=== PATIENT | male | born 1965 | race African-American/Black ===

== ENCOUNTER 2016-10-31 18:44 | Inpatient (IN) | payer OTHER ==
[~2016-10-31] VITALS: Ht 175.3 cm; Wt 107.8 kg
[2016-10-31 20:26] LABS: BASOPHILS 0.1 % (0.0-2.0); EOSINOPHILS 5.6 % (0-7); HEMATOCRIT 45.9 % (42.0-54.0); HEMOGLOBIN 15.9 g/dL (13.5-17.5); IMMATURE GRANULOCYTES 0.2 % (0-5); LYMPHOCYTES 20.8 % (15-50); MCH 31.8 pg (26.0-34.0); MCHC 34.6 g/dL (31.0-37.0); MCV 91.8 fL (80.0-100.0); MEAN PLATELET VOLUME 11.9 fL (7.4-10.4); NEUTROPHILS 63.3 % (40-80); PLATELET COUNT 163 10x3/uL (130-400); RDW 14.8 % (11.5-14.5); WBC 9.1 10x3/uL (4.8-10.8)
[2016-10-31 20:42] LABS: ALBUMIN 3.3 g/dL (3.4-5.0); ANION GAP 14.1 mmol/L (8-16); BILIRUBIN - TOTAL 0.4 mg/dL (0.2-1.3); C-REACTIVE PROTEIN 2.8 mg/dL (0.0-0.9); CALCIUM 8.5 mg/dL (8.5-10.1); CARBON DIOXIDE 23.5 mmol/L (21.0-32.0); CREATININE - SERUM 1.7 mg/dL (0.6-1.3); POTASSIUM - SERUM 3.6 mmol/L (3.5-5.1); PROTEIN - SERUM 6.9 g/dL (6.4-8.2)
[2016-10-31 21:56] LABS: ERYTHROCYTE SEDIMENTATION RATE 13 mm/hr (0-15)
--- NOTE | 2016-10-31 23:20 | NUR ---
RECIEVED TO ROOM 2104 FOR E.R. A&O, RESPERATIONS EVEN, VITALS STABLE. RASH NOTED TO VARIOUS PARTS OF BODY INCLUDING HANDS, FACE, ABD AND LEGS. PT DENIES PAIN OR NEEDS, BED LOW, CL IN REACH.
[2016-11-01] VITALS: BP 121/69
[2016-11-01 04:00] VITALS: BP 122/76
--- NOTE | 2016-11-01 04:19 | NUR ---
LYING IN BED WITH EYES CLOSED, CALL LIGHT IN REACH. WILL CONTINUE WITH PLAN OF CARE.
--- NOTE | 2016-11-01 07:23 | NUR ---
0720-AM ROUNDING DONE. PATIENT LAYING ON LEFT SIDE WITH EYES CLOSED. RESP ARE EVEN AND NON LABORED. ON ROOM AIR. ON HEART MONITOR SHOWING SR, HR 77. GIRLFRIEND IN CHAIR AT BEDSIDE. WILL CONTINUE OT MONITOR.
[2016-11-01 08:10] VITALS: BP 132/75
[2016-11-01 11:50] VITALS: BP 137/67
[2016-11-01] MEDS ORDERED: NORVASC5 MG PO (12:33)
[2016-11-01] MEDS ORDERED: CATAPRES0.1 MG PO (12:34)
[2016-11-01] MEDS ORDERED: SINEQUAN25 MG PO (12:36)
[2016-11-01] MEDS ORDERED: LISINOPRIL10 MG PO (12:37)
[2016-11-01] MEDS ORDERED: OMEPRAZOLE20 M1 PO (12:38)
[2016-11-01] MEDS ORDERED: RISPERDAL3 MG PO (12:40)
[2016-11-01] MEDS ORDERED: ZOLOFT100 MG PO (12:41)
[2016-11-01] MEDS ORDERED: BACTRIM DS TABL1 TAB PO (12:42)
--- NOTE | 2016-11-01 13:52 | NUR ---
SISTER (JAMISON) HERE INQUIRING ON PATIENT. SHE STATES THAT IF HE DOES NOT TAKE HIS MEDS HE CAN BECOME "COMBATIVE AND A HANDFUL". I CALLED DR HICKS'S OFFICE, REVIEWED HIS HOME MEDS, AND PLACED THEM INTO THE SYSTEM EXCEPT FOR THE BACTRIM.
--- NOTE | 2016-11-01 15:00 | NUR ---
ASKED PATIENT IF HE WANTED TO WASH UP TODAY AND HE STATES "NO". WILL CONTINUE TO MONITOR.
[2016-11-01 15:52] VITALS: BP 134/79
[2016-11-01 20:00] VITALS: BP 145/81
--- NOTE | 2016-11-01 21:21 | NUR ---
RESTING IN BED. AROUSES TO VOICE. ALERT ORIENTED CONVERSANT. DENIES NEEDS. NO ACUTE DISTRESS NOTED.
[2016-11-02] VITALS: BP 138/79
--- NOTE | 2016-11-02 02:09 | NUR ---
LYING IN BED WITH EYES CLOSED, CALL LIGHT IN REACH. WILL CONTINUE WITH PLAN OF CARE.
[2016-11-02 04:00] VITALS: BP 115/79
[2016-11-02 05:24] LABS: BASOPHILS 0.2 % (0.0-2.0); HEMATOCRIT 43.5 % (42.0-54.0); IMMATURE GRANULOCYTES 0.3 % (0-5); LYMPHOCYTES 18.1 % (15-50); MCH 31.6 pg (26.0-34.0); MCHC 34.5 g/dL (31.0-37.0); MCV 91.6 fL (80.0-100.0); MEAN PLATELET VOLUME 11.8 fL (7.4-10.4); MONOCYTES 7.7 % (2-11); NEUTROPHILS 70.7 % (40-80); PLATELET COUNT 156 10x3/uL (130-400); RBC 4.75 10x6/uL (4.20-6.10); RDW 14.9 % (11.5-14.5)
[2016-11-02 05:35] LABS: WBC 12.9 10x3/uL (4.8-10.8)
[2016-11-02 05:51] LABS: ANION GAP 15.2 mmol/L (8-16); CALCIUM 8.7 mg/dL (8.5-10.1); CARBON DIOXIDE 23.8 mmol/L (21.0-32.0); CREATININE - SERUM 1.4 mg/dL (0.6-1.3)
--- NOTE | 2016-11-02 07:47 | NUR ---
0715-AM ROUNDING MADE, PATIENT STATES HE SLEPT WELL LAST NIGHT. ON ROOM AIR. ON HEART MONITOR SHWOING SR, HR 78. LEFT WRIST SEEN WITH SALINE LOCK. PATIENT STILL HAS RASH OVER ENTIRE BODY WITH PUSCILUES TO TRUNK AREA. WILL CONTINUE TO MONITOR.
[2016-11-02 08:06] VITALS: BP 116/66
--- NOTE | 2016-11-02 09:10 | NUR ---
Patient Name: MODESTO ESCOBAR Admission Status: ER Accout number: [id number] Admission Date: 10-31-2016 : 1965 Admission Diagnosis:OTH DISRD OF THE SKIN AND SUBCUTANEOUS TISSUE Attending: GILSON Current LOS: 2 Anticipated DC Date: 11-03-2016 Planned Disposition: Home Primary Insurance: [employer] Discharge Planning Comments: * Is the patient Alert and Oriented? Yes 0 * How many steps to enter\exit or inside your home? RAMP 0 * PCP DR. MACK [place] 0 * Pharmacy [facility] IN [place] 0 * Preadmission Environment Home with Family 0 * ADLs Independent 0 * Equipment None 0 * Other Equipment NO MEDICAL EQUIPMENT PROVIDER PREFERENCE 0 * List name and contact numbers for known caregivers / representatives who currently or will assist patient after discharge: SANJEEV YEAGER, GIRLFRIEND, 0 * Community resources currently utilized None 0 * Please name any agencies selected above. NONE 0 * Additional services required to return to the preadmission environment? No 0 * Can the patient safely return to the preadmission environment? Yes 0 * Has this patient been hospitalized within the prior 30 days at any hospital? No 0 CM MET WITH PT IN ROOM TO DISCUSS DISCHARGE PLANNING AND NEEDS. PT REPORTS LIVING AT HOME INDEPENDENTLY WITH HIS PARENTS. PT HAS NO MEDICAL EQUIPMENT AND NO OUTSIDE SERVICES ASSISTING IN THE HOME. CM DISCUSSED AVAILABILITY OF HOME HEALTH, REHAB SERVICES AND MEDICAL EQUIPMENT. PT DENIES DISCHARGE NEEDS, REPORTS HIS GIRLFRIEND OR PARENTS WILL PICK HIM UP FOR DISCHARGE HOME. PT PLANS TO DISCHARGE HOME WITH PARENTS, DENIES NEEDS. CM TO FOLLOW AND ASSIST NEEDED. Wool Cleaner: Colby Garcia
[2016-11-02 09:27] VITALS: Ht 175.3 cm; Wt 107.8 kg
--- NOTE | 2016-11-02 10:00 | NUR ---
DR SULLIVAN TO CALL AND INQUIRE ON PATIENT. STATES THAT HE WILL BE BY LATER TO SEE HIM.
[2016-11-02 12:00] VITALS: BP 122/63
[2016-11-02 16:00] VITALS: BP 135/83
--- NOTE | 2016-11-02 18:05 | NUR ---
DENIES NEEDS AT PRESENT TIME, WILL CONTINUE TO MONITOR. REQUESTED SOME VASOINE, GIVEN.
[2016-11-02 20:51] VITALS: BP 143/87
[2016-11-03 00:54] VITALS: BP 124/68
[2016-11-03 04:03] VITALS: BP 128/61
--- NOTE | 2016-11-03 07:00 | NUR ---
RECEIVED REPORT. ASSUMED CARE OF PATIENT. RESTING WITH EYES OPEN, CALL LIGHT WITHIN REACH. RESP EVEN AND UNLABORED. DENIES PAIN. STATES CELLULITIS TO LEFT LOWER EXTREMITIY IS BETTER. NO DISTRESS.
[2016-11-03 07:35] VITALS: BP 139/67
--- NOTE | 2016-11-03 09:38 | NUR ---
PATIENT UPSET THAT HE IS NOT OUT OF THE HOSPITAL YET. PATIENT MAKING REMARKS THAT IF MD DOES NOT LET HIM GO HOME TODAY THEN HE IS GONNA WALK OUT ANYWAY. RISK ASSOCIATED WITH LEAVING AMA VERBALIZED WITH PATIENT. PATIENT DOES NOT CARE. SCHEDULED MEDICATION FOR MOOD SWINGS ADMINISTERED AT THIS TIME. FEMALE VISITOR REMAINS AT BEDSIDE. NO DISTRESS.
[2016-11-03] MEDS ORDERED: MEDROL DOSE PACK4 MG PO (09:45)
[2016-11-03] MEDS ORDERED: KENALOG 0.1 % 115 GM TOPICAL (09:47)
[2016-11-03 11:19] VITALS: BP 138/82
--- NOTE | 2016-11-03 11:39 | NUR ---
WENT TO PATIENT ROOM TO GIVE DISCHARGE INSTRUCTIONS AND PATIENT OUT OF ROOM WALKING HALLS. WILL WATCH FOR PATIENT TO RETURN TO ROOM.
--- NOTE | 2016-11-03 12:19 | NUR ---
1210 20 GAUGE IV D/C'D FROM LEFT FOREARM. CATHETER TIP INTACT. NO BLEEDING FROM SITE. 2X2 GAUZE APPLIED AND SECURED WITH TAPE. 1215 DISCHARGE INSTRUCTIONS PROVIDED TO PATIENT. PATIENT VERBALIZED ALL INSTRUCTIONS GIVEN. FEMALE VISITOR AT BEDSIDE. PATIENT AND FEMALE VISITOR AWAITING FOR SOMEONE TO COME AND GET THEM.
--- NOTE | 2016-11-03 12:40 | NUR ---
PATIENT LEFT UNIT AT THIS TIME. PATIENT CHOSE TO AMBULATE OFF UNIT WITH ALL PERSONAL BELONGINGS. NO DISTRESS UPON LEAVING UNIT. PATIENT DISCHARGED TO HOME.
--- NOTE | 2016-12-20 15:39 | CN ---
PATIENT NAME:MODESTO ESCOBAR MEDICAL RECORD: [id number] : 69 LOCATION:D. D.2105 ADMIT DATE: 10/31/16 ACCOUNT: [id number] CONSULTING PHYSICIAN: KEON SULLIVAN MD REFERRING PHYSICIAN: JESSICA HICKS MD DATE OF CONSULTATION: 11/02/2016 Dermatology Consultation SUBJECTIVE: This 51-year-old -[place] gentleman was hospitalized on 10/31/2016 for a potential cellulitis. He presented with a significantly worsening rash on his arms and legs with severe itching. He reported a similar rash an unknown number of years ago that was seen at [facility], but he never followed up for diagnosis or treatment as the rash was better. He states he has had some mild episodes on his legs, but nothing to this level since previous hospitalization unknown number of years ago. He was concerned that it is some sort of "fungus." Before hospitalization, he has not had any treatment for this other than ihsz-jcc-[id number] remedies. OBJECTIVE: This gentleman was lying in bed comfortably and was in no acute distress. He was mildly pruritic during the history and examination. Symmetrically on his forearms, lower legs and feet, there were scaling plaques with underlying deep erythema. There was evidence of resolving pustules or vesicles. There were a few scattered similar papules on lower back and upper buttocks. It appears that the lesions are beginning to resolve with desquamation. Also noted, h is toenails were thickened with hyperkeratotic yellow crust, and soles of his feet had thick scale in a moccasin distribution. ASSESSMENT AND PLAN: This appears to be a dermatitis that is severe, but improving. On my differential diagnosis is id reaction, induced from dermatophyte infection of the feet and toenails. Id reaction is a secondary process from the immune system of unknown cause usually induced from a dermatophyte infection. It is usually symmetrical, worse on the arms and can be severe in areas of venous stasis on the lower legs. It appears that he began improving on antibiotics and now on systemic steroids, which leads me to think that may be the case. Other things on the differential diagnosis could be a drug eruption, but this is unlikely since he has had no recent changes in medication or outpatient antibiotics. Other differential diagnoses could include allergic contact dermatitis, severe atopic dermatitis, acute psoriasis. Much lower on the differential diagnosis would be a cutaneous T-cell lymphoma or an unusual bullous pemphigoid. In addition to continuing systemic steroids IV inpatient or oral outpatient, I would also add a topical steroid for his comfort such as triamcinolone 0.1% cream. I see the patient lives in [place], and I have an outpatient clinic in [place] and we will see him Saturday for further testing and treatment. At that point in time, I will begin treating the fungal component on his feet and nails and potentially do some nail clippings or scraping for fungal culture. If you have any further questions, feel free to call the clinic or contact me by cell number. TRANSINT:[id number] Voice Confirmation ID: [id number] DOCUMENT ID: [id number] CONSULT REPORT [id number] MODESTO ESCOBAR STEPHEN MD at 1539 CC: [id number] DICTATION DATE: 11/02/16 1441 TEST CAR DRIVER: 11/02/16 2013 DIS IN 11/03/16 [facility] [address] [place] [address]
== END 2016-11-03 12:40 | disposition home or self-care (01) | DRG 607 ==
LOC: D.ER 18:44 → D.M2 21:09 → D.SDCHOLD 11-02 13:38 → D.M2 11-03 12:40
PROVIDERS: Nurse Practitioner Acute Care; ADMIT Family Medicine
DX: B35.9 Dermatophytosis, unspecified (principal); L03.818 Cellulitis of other sites; L30.9 Dermatitis, unspecified; I10 Essential (primary) hypertension; L85.9 Epidermal thickening, unspecified; L60.8 Other nail disorders; Z72.0 Tobacco use